=== PATIENT | female | born 1955 | race Caucasian/White ===

== ENCOUNTER 2016-05-21 19:07 | Emergency (ER) | payer OTHER ==
[~2016-05-21] VITALS: Ht 154.9 cm; Wt 68.8 kg
[2016-05-21 19:07] VITALS: Ht 154.9 cm; Wt 68.8 kg
--- OUTSIDE RECORDS SUMMARY | 2016-05-21 19:11 | XMS REPORT ---
Author Angel Easton Organization [employer] Address Unknown Phone Unavailable Care Team Providers Care Manufacturing Machine Operator Name Role Phone Angel Joyce CP Unavailable Allergies, Adverse Reactions, Alerts Substance Reaction Event Type N.K.D.A. Info Not Available Non Drug Allergy Problems Problem Type Condition ICD-9 Code Onset Dates Condition Status Assessment Adult Wellness Exam V70.0 Active Assessment Fatigue 780.79 Active Problem Depression 311 Active Assessment Screening for lipoid disorders V77.91 Active Assessment Depressive disorder 311 Active Medications Medication Code System Code Instructions Start Date End Date Status Dosage BuPROPion HCl (XL) [facility] [address]-01 300 MG Orally Once a day 1 tablet in the morning Procedures Procedure Coding System Code Date COMP PROFILE CPT-4 27222 Mar 19, 2014 TSH CPT-4 55604 Mar 19, 2014 CBC CPT-4 03182 Mar 19, 2014 OFFICE VISITEST PT CPT-4 59182 Mar 19, 2014 LIPID PROFILE CPT-4 24437 Mar 19, 2014 Vital Signs Date/Time: Mar 19, 2014 Blood Pressure Systolic 120 mm Hg Height 61 in Weight 146 lbs BMI 27.58 Index Blood Pressure Diastolic 78 mm Hg Results No Known Results Summary Purpose [employer] Submission
--- OUTSIDE RECORDS SUMMARY | 2016-05-21 19:11 | XMS REPORT ---
Author Nell Vee Organization [employer] Address Unknown Phone Unavailable Care Team Providers Care Button Clamper Name Role Phone Nell Webster CP Unavailable Allergies, Adverse Reactions, Alerts Substance Reaction Event Type N.K.D.A. Info Not Available Non Drug Allergy Problems Problem Type Condition Code Onset Dates Condition Status Problem Depression 311 Active Assessment Depression F32.9 Active Problem Elevated LDL cholesterol level 272.0 Active Medications Medication Code System Code Instructions Start Date End Date Status Dosage BuPROPion HCl (XL) [facility] [address]-44 450 MG Orally Once a day take one tablet by mouth every morning bio-identical hormones NDC 0 once a day 1 and a half jason Procedures Procedure Coding System Code Date OFFICE VISITEST PT CPT-4 84459 Jan 01, 2015 Vital Signs Date/Time: Jan 01, 2015 Blood Pressure Systolic 110 mm Hg Height 61 in Weight 146 lbs BMI 27.58 Index Blood Pressure Diastolic 70 mm Hg Results No Known Results Summary Purpose [employer] Submission
--- OUTSIDE RECORDS SUMMARY | 2016-05-21 19:11 | XMS REPORT ---
Author Angel Easton Organization [employer] Address Unknown Phone Unavailable Care Team Providers Care Public Employment Mediator Name Role Phone Angel Joyce CP Unavailable Allergies No Known Allergies Problems Problem Type Condition ICD-9 Code Onset Dates Condition Status Assessment Depression 311 Active Problem Depression 311 Active Medications Medication Code System Code Instructions Start Date End Date Status Dosage BuPROPion HCl (XL) [facility] [address]-02 300 MG Orally Once a day Active 1 tablet in the morning Results No Known Results Summary Purpose [employer] Submission
--- OUTSIDE RECORDS SUMMARY | 2016-05-21 19:11 | XMS REPORT ---
Author Angel Easton Organization [employer] Address Unknown Phone Unavailable Care Team Providers Care Assistant Elementary Teacher Name Role Phone Angel Joyce CP Unavailable Allergies No Known Allergies Problems Problem Type Condition ICD-9 Code Onset Dates Condition Status Problem Depression 311 Active Problem Elevated LDL cholesterol level 272.0 Active Medications No Known Medications Results No Known Results Summary Purpose [employer] Submission
--- OUTSIDE RECORDS SUMMARY | 2016-05-21 19:11 | XMS REPORT ---
Author Angel Easton Organization [employer] Address Unknown Phone Unavailable Care Team Providers Care Diamond Wheel Molder Name Role Phone Angel Joyce Unavailable Allergies No Known Allergies Problems Problem Type Condition Code Onset Dates Condition Status Problem Depression 311 Active Assessment Depression F32.9 Active Problem Elevated LDL cholesterol level 272.0 Active Medications Medication Code System Code Instructions Start Date End Date Status Dosage BuPROPion HCl (XL) [facility][NOTE 3] [address]-26 450 MG Orally Once a day 1 tablet in the morning Results No Known Results Summary Purpose [employer] Submission
--- OUTSIDE RECORDS SUMMARY | 2016-05-21 19:11 | XMS REPORT ---
Author Angel Easton Organization [employer] Address Unknown Phone Unavailable Care Team Providers Care Corporate Trust Officer Name Role Phone Angel Joyce CP Unavailable Allergies No Known Allergies Problems Problem Type Condition ICD-9 Code Onset Dates Condition Status Problem Depression 311 Active Assessment Depression 311 Active Problem Elevated LDL cholesterol level 272.0 Active Medications Medication Code System Code Instructions Start Date End Date Status Dosage BuPROPion HCl (XL) [facility] [address]-76 300 MG Orally Once a day 1 tablet in the morning Results No Known Results Summary Purpose [employer] Submission
--- OUTSIDE RECORDS SUMMARY | 2016-05-21 19:11 | XMS REPORT ---
Author Angel Easton Organization [employer] Address Unknown Phone Unavailable Care Team Providers Care Anesthesiologist Name Role Phone Angel Joyce CP Unavailable Allergies No Known Allergies Problems Problem Type Condition ICD-9 Code Onset Dates Condition Status Problem Depression 311 Active Assessment Elevated LDL cholesterol level 272.0 Active Problem Elevated LDL cholesterol level 272.0 Active Assessment Abnormal glucose 790.29 Active Medications No Known Medications Results No Known Results Summary Purpose [employer] Submission
--- OUTSIDE RECORDS SUMMARY | 2016-05-21 19:11 | XMS REPORT ---
Author Angel Easton Organization [employer] Address Unknown Phone Unavailable Care Team Providers Care Associate Financial Representative Name Role Phone Angel Joyce CP Unavailable Allergies No Known Allergies Problems Problem Type Condition ICD-9 Code Onset Dates Condition Status Problem Depression 311 Active Problem Elevated LDL cholesterol level 272.0 Active Medications No Known Medications Results No Known Results Summary Purpose [employer] Submission
--- OUTSIDE RECORDS SUMMARY | 2016-05-21 19:11 | XMS REPORT ---
Author Angel Easton Organization [employer] Address Unknown Phone Unavailable Care Team Providers Care Ostomy Care Nurse Name Role Phone Angel Joyce CP Unavailable Allergies, Adverse Reactions, Alerts Substance Reaction Event Type N.K.D.A. Info Not Available Non Drug Allergy Problems Problem Type Condition ICD-9 Code Onset Dates Condition Status Assessment Depression 311 Active Assessment Acute anxiety 300.00 Active Problem Depression 311 Active Medications Medication Code System Code Instructions Start Date End Date Status Dosage BuPROPion HCl (SR) [facility] 22283101902 200 Inactive TAKE ONE TABLET BY MOUTH EVERY DAY BuPROPion HCl (XL) [facility] [address]-62 300 MG Orally Once a day Jan 03, 2014 Active 1 tablet in the morning Procedures Procedure Coding System Code Date OFFICE VISITEST PT CPT-4 90861 Jan 03, 2014 Vital Signs Date/Time: Jan 03, 2014 Blood Pressure Systolic 112 mm Hg Height 61 in Weight 146.8 lbs BMI 27.73 Index Blood Pressure Diastolic 74 mm Hg Results No Known Results Summary Purpose [employer] Submission
--- OUTSIDE RECORDS SUMMARY | 2016-05-21 19:11 | XMS REPORT ---
Author Angel Easton Organization [employer] Address Unknown Phone Unavailable Care Team Providers Care Engine Emission Technician Name Role Phone Angel Joyce CP Unavailable Allergies, Adverse Reactions, Alerts Substance Reaction Event Type N.K.D.A. Info Not Available Non Drug Allergy Problems Problem Type Condition ICD-9 Code Onset Dates Condition Status Problem Depression 311 Active Assessment Hip pain 719.45 Active Problem Elevated LDL cholesterol level 272.0 Active Assessment Nonallopathic lesion of hip region 739.5 Active Assessment Lumbar dysfunction 739.3 Active Assessment Nonallopathic lesion of sacral region 739.4 Active Medications Medication Code System Code Instructions Start Date End Date Status Dosage BuPROPion HCl (XL) [facility] 86047171237 300 Orally Once a day 1 tablet in the morning Procedures Procedure Coding System Code Date OMT 34 REG CPT-4 37119 Sep 23, 2014 Vital Signs Date/Time: Sep 23, 2014 Blood Pressure Systolic 110 mm Hg Height 61 in Weight 141 lbs BMI 26.64 Index Blood Pressure Diastolic 74 mm Hg Results No Known Results Summary Purpose [employer]Works Submission
--- OUTSIDE RECORDS SUMMARY | 2016-05-21 19:11 | XMS REPORT ---
Author Mahamed Eastman Organization [employer] Address Unknown Phone Unavailable Care Team Providers Care Photo Lab Specialist Name Role Phone Mahamed Kruse CP Unavailable Allergies, Adverse Reactions, Alerts Substance Reaction Event Type N.K.D.A. Info Not Available Non Drug Allergy Problems Problem Type Condition Code Onset Dates Condition Status Assessment Bronchitis J40 Active Problem Depression with anxiety F41.8 Active Medications Medication Code System Code Instructions Start Date End Date Status Dosage vitamin d NDC 0 5000 iu po q week 1 Bi/Pro/Dana/Mthf/B12 NDC 0 0.8/80/0.2/1/0.4 between cheek and gum BID 1/2 jason Zithromax NDC 1541 500 mg orally once a day Oct 20, 2015 1 tab(s) Wellbutrin NDC 0 300 mg orally QD 1 tab(s) omega-3 polyunsaturated fatty acids NDC 58903 500 mg orally once a day 1 tab Fluoxetine NDC 4091 20 orally once a day 1 cap(s) Procedures Procedure Coding System Code Date Office Est Level 3 CPT-4 41437 Oct 20, 2015 Vital Signs Date/Time: Oct 20, 2015 BMI 28.15 Index Blood Pressure Diastolic 68 mm Hg Height 61 in Weight 149 lbs Respiratory Rate 16 /min Temperature 98.3 F Waist Hips Ratio .51 % Waist 31 Inches Blood Pressure Systolic 108 mm Hg Cardiac Monitoring Heart Rate 75 /min Results No Known Results Summary Purpose eClinicalWorks Submission
--- NOTE | 2016-05-21 19:12 | ERPDOC ---
Departure Disposition Decision Date: May 21, 2016 Disposition Decision Time: 22:04 Disposition: 02 TO [facility] Impression Impression Impression: Primary Impression: Lumbar vertebral fracture Encounter type: initial encounter Lumbar vertebra fracture level: L2 Fracture type: closed Fracture morphology: other fracture Qualified Codes: S32.028A - Other fracture of second lumbar vertebra, initial encounter for closed fracture Additional Impression: Fall Encounter type: initial encounter Qualified Codes: W19.XXXA - Unspecified fall, initial encounter Severity: Severe Condition: Improved Seen By: Physician only Problems/Meds/Labs Reviewed?: Yes Medications reviewed and manag: Yes Follow up care ordered?: Yes Mental Status: Alert HPI - Back Pain General Chief Complaint: Fall Stated Complaint: FALL/BACK AND KNEE PAIN Time Seen by Provider: 19:11 Source: patient Exam Limitations: no limitations HPI - Back Pain Initial Comments 1 PM, the patient was walking into her basement and fell into a 9 foot deep concrete patient that is in their basement. Apparently the cover that supposed be on top of the patient, had been removed and the patient did not realize. Since that time the patient is been having excruciating midline lumbar pain with radiation down both legs, left greater than right, patient also has been having bilateral posterior rib pain right greater than left, and an abrasion/ contusion to the right anterior knee. And has had a total of 800 mg of Motrin taken throughout the day, the last dose was one tablet several hours ago. Occurred At: home Onset/Timing: Rapid Duration: 6-12 hrs Severity/Quality: severe Location: lumbar spine 1 - Severe midline lumbar back pain 2 - Radiation of pain with movement 3 - Radiation of pain with movement 4 - Lower posterior rib pain Associated Sypmtoms: lower back pain, DENIES: fever, loss of bladder control, loss of bowel control, muscle spasms, numbness in legs/feet, sensory/motor loss , tingling in legs/feet, weakness Hx of Similar Symptoms: No Allergies: Coded Allergies: No Known Allergies (Unverified , 05/21/16) Past History Patient Medical History Problem List Updates: Sciatica Past Medical History Musculoskeletal: back pain (chronic recurrent sciatica) Surgical History Denies Surgeries Social History Smoking Status: Never smoker Does patient use chewing tobac: No Second Hand Exposure: No Substance Use Type: does not use Alcohol Intake: none Record Review Pertinent history updated: Yes Review of Systems Constitutional Constitutional: DENIES: appetite decrease, appetite increase, chills, dizziness , fever, weakness ENMT Ears: DENIES: pain Hearing: DENIES: hearing loss, tinnitus Balance: DENIES: vertigo Mouth/Throat: DENIES: change in swallowing, change in voice, hoarsness, painful swallowing, sore throat Cardiovascular Cardiac: DENIES: chest pain, dyspnea on exertion Rhythm/Rate: DENIES: irregular beat, palpitations, tachycardia Vascular: DENIES: pedal edema Pulmonary Respiratory: DENIES: cough, dyspnea, pleuritic chest pain GI Upper Abdomen: DENIES: dysphagia, heartburn/indigestion, nausea, pain, vomiting Lower Abdomen: DENIES: blood in stool, constipation, diarrhea, pain General: DENIES: burning, dysuria, frequency, pain, urgency Musculoskeletal General: pain, tenderness, DENIES: atrophy of muscles, cramps, joint pain, joint swelling, weakness Integumentary Skin: DENIES: rash, sores Neurological General: DENIES: headache, numbness, tingling, vertigo, weakness Psychiatric Psychiatric: DENIES: anxiety, depression, nervousness Physical Exam General General Nourishment: well nourished, well developed, appears stated age General Body Habitus: well groomed Vitals and Pain First Documented Vital Signs Date Time Temp Pulse Resp B/P Pulse Ox O2 Delivery O2 Flow Rate FiO2 05/21/16 19:07 98.0 80 16 140/70 98 Room Air Weight: Kilograms: Height (feet): Height (inches): Triage Pain Scale: RN VS reviewed by Provider: Yes Comments Patient appears in moderate pain with movement, mild pain while remaining still and flat on the bed Normal Exams: Head: Normocephalic w/o trauma Eyes: Pupils are PERRLA w/ EOMI, No scleral icterus, irritation, or foreign bodies noted ENMT: No facial trauma, nasal exudates, pharyngeal erythema, or exudates are noted Neck: Full range of motion, without adenopathy, JVD, bruits or thyromegaly Chest/Resp: Clear all vick, with good airflow, and symmetry bilaterally CV: Regular rate and rhythm, without murmur or gallop, Pulses 2+ all extremities, capillary refill, <2 seconds all ext., no pedal edema noted Abdomen: Bowel sounds positive, soft, non-tender, non-distended, no hepatosplenomegaly, masses or bruits noted Lymphatic: No lymphadenopathy, or lymphedema noted Integumentary: No rashes, hives, or bruising noted, hair and nails, without abnormality Neurologic: Patient is alert, and oriented, cranial nerves, motor/sensory/ cerebellar, exams w/o gross deficits, to observation Psychiatric: Patient exhibits, appropriate attention, emotion and affect Musculoskeletal (brief) Musculoskeletal Brief: FOUND: tenderness, NOT FOUND: deformity, loss of motion , spasm Comments Patient has significant midline mid to lower lumbar tenderness, no deformities. Patient has bilateral posterior rib tenderness right greater than left, no deformities. Patient has a superficial abrasion with mild ecchymosis to the anterior portion of the knee, no significant knee tenderness, full range of motion. Patient is neurovascularly intact, with full range of motion, however she significantly splints with any movement of the back. Progress Results/Orders Orders Procedure Category Date Status Time Ct Lumbar Spine W/O CT 05/21/16 Taken Contrast Ribs Bilateral With RAD 05/21/16 Taken Ap Chest Dressing (Ed) EDM 05/21/16 Transmitted 19:12 Irrigate/Clean Wound EDM 05/21/16 Transmitted 19:12 Neomycin/Polymyxin/Bacitracin PHA 05/21/16 Complete (Neosporin 19:15 Ibuprofen (Motrin) PHA 05/21/16 Complete 19:30 Hydrocodone/Acetaminophen PHA 05/21/16 Complete ([place] 7.5/325 19:30 Iv Lock (Ed Only) EDM 05/21/16 Transmitted 21:51 Hydromorphone PHA 05/21/16 In Process (Dilaudid) 22:00 Medications Current ED Medications Neomycin/ Polymyxin/ Bacitracin (Neosporin) 1 applic O ONCE TOP Last administered on 05/21/16 19:26; Start 05/21/16 at 19:15; Stop 05/21/16 at 19:17; Status DC Ibuprofen (Motrin) 400 mg O ONCE PO Last administered on 05/21/16 19:26; Start 05/21/16 at 19:30; Stop 05/21/16 at 19:31; Status DC Acetaminophen/ Hydrocodone Bitart ([place] 7.5/325) 1 tab O ONCE PO Last administered on 05/21/16 19:26; Start 05/21/16 at 19:30; Stop 05/21/16 at 19:31; Status DC Hydromorphone HCl (Dilaudid) 1 mg O ONCE IV ; Start 05/21/16 at 22:00; Stop 05/21 at 22:01 Progress Progress Patient elects oral medications for pain, given the remainder of full dose of ibuprofen, and [place] [address] lumbar spine - Fracture left lower corner or L2 with avulsion and 4mm subluxation of L2 laterally over L3. Chest and rib series - normal Pt Still having significant pain. IV started and given Dilaudid 1mg IV Discussed with Dr. Clarke Henry Neurosurg at [facility] and Dr. Missy Melchor Trauma at [facility] - Pt is accepted to [facility] for traumatic lumbar fracture with subluxation. Finding and plan discussed with Pt and . MARGOT PÉREZ MD May 21, 2016 19:12
[2016-05-21] MEDS ORDERED: NEOMYCIN/POLYM/BACITR OINT PACKET TOP ONE (19:15)
[2016-05-21] MEDS ORDERED: bioidentical hormone PO (19:21)
[2016-05-21] MEDS ORDERED: FLUO-138 PO (19:21)
[2016-05-21] MEDS ORDERED: BUPR100T5 PO (19:21)
[2016-05-21] MEDS ORDERED: IBUP-1724 PO (19:21)
[2016-05-21] MEDS ORDERED: VITA1TAB21 PO (19:21)
[2016-05-21] MEDS ORDERED: CALC-946 PO (19:21)
--- NOTE | 2016-05-21 19:25 | NUR ---
PROVIDER DR PÉREZ IN TO SEE PATIENT.
[2016-05-21] MEDS ORDERED: IBUPROFEN 200 MG TABLET PO ONE (19:30)
--- NOTE | 2016-05-21 20:04 | NUR ---
TO CT PER CART.
--- NOTE | 2016-05-21 20:15 | NUR ---
BACK FROM CT
--- NOTE | 2016-05-21 20:28 | NUR ---
STATUS PATIENT IS RESTING IN BED. STATES THAT THE PAIN IS SLIGHTLY BETTER.
[2016-05-21] MEDS ORDERED: HYDROMORPHONE 2mg/ml INJECTION IV ONE (22:00)
--- NOTE | 2016-05-21 22:20 | NUR ---
REPORT GIVEN TO IRINA BAIN. NO QUESTIONS.
[2016-05-21 23:06] VITALS: BP 118/58; PULSE 18; RESP 98; TEMP 98; O2SAT 98
--- NOTE | 2016-05-22 08:27 | DI ---
Indication: ITS.REASON: fall, bilateral posterior rib pain R>L PROCEDURE: RIBS BILATERAL WITH AP CHEST: Encounter: Initial Comparison: None FINDINGS: PA view of the chest: The lungs are clear. There is no abnormal airspace opacity, pleural effusion or pneumothorax identified. The heart size, pulmonary vasculature and mediastinum are within normal limits. No significant skeletal abnormality is seen. AP and oblique views of the right ribs: No acute displaced rib fracture. AP and oblique views of the left ribs: No acute displaced rib fracture. IMPRESSION: No acute cardiopulmonary abnormality. .
--- NOTE | 2016-05-22 08:32 | DI ---
Indication: ITS.REASON: fall, low back pain PROCEDURE: CT LUMBAR SPINE W/O CONTRAST: Encounter: Initial Comparison: None Technique: Axial noncontrast CT imaging of the lumbar spine was performed with coronal and sagittal two-dimensional reformats. Automated Exposure Control and Iterative Reconstruction dose reducing techniques were utilized. FINDINGS: The alignment of the lumbar spine is normal for the patient's age. Acute fracture of the anterolateral lateral endplate of L2 on the left side, best seen on the axial and coronal plane images. No additional acute fracture seen. Minimal subluxation of L2 relative to L3. There are age appropriate degenerative changes within the intervertebral disks and facet joints in the lower lumbar region. The paraspinal soft tissues and spinal canal are otherwise unremarkable in appearance. IMPRESSION: Acute inferior endplate fracture of L2. There is a preliminary report by virtual radiologic. .
== END 2016-05-21 22:45 | disposition short-term general hospital (02) ==
LOC: ED 19:07
DX: S32.028A Other fracture of second lumbar vertebra, initial encounter for closed fracture (principal); R07.81 Pleurodynia; S80.01XA Contusion of right knee, initial encounter; W17.2XXA Fall into hole, initial encounter; Y93.9 Activity, unspecified; Y92.018 Other place in single-family (private) house as the place of occurrence of the external cause; Y99.8 Other external cause status
CPT/HCPCS: 71111; 72131; 96374; 99285; J1170